=== PATIENT | male | born 1985 | race Hispanic/Latino ===

== ENCOUNTER 2018-07-21 12:02 | Emergency (ER) | payer SELFPAY ==
[2018-07-21] MEDS ORDERED: LEVALBUTEROL 1.25 MG/3 ML NEB ONE (12:50)
--- NOTE | 2018-07-21 14:47 | RAD REPORT ---
EXAM DESCRIPTION: RAD - Chest Pa And Lat (2 Views) - 07/21/2018 2:43 pm CLINICAL HISTORY: cough, fever Chest pain. COMPARISON: No comparisons FINDINGS: The lungs are clear. The heart is normal in size. No displaced fractures. IMPRESSION: No acute or concerning finding suspected.
--- NOTE | 2018-07-21 15:00 | ER ---
Nurse's Notes [facility] Name: Tyree Cantu Age: 32 yrs Sex: Male : 1985 Arrival Date: 07/21/2018 Time: 12:05 Bed 17 Private MD: None, None Diagnosis: Influenza due to other identified influenza virus Presentation: 07/21 12:08 Presenting complaint: Patient states: productive cough that began Thursday. Pt reports aa5 body aches and chills. Transition of care: patient was not received from another setting of care. Onset of symptoms was 2018. Risk Assessment: Do you want to hurt yourself or someone else? Patient reports no desire to harm self or others. Initial Sepsis Screen: Does the patient meet any 2 criteria? No. Patient's initial sepsis screen is negative. Does the patient have a suspected source of infection? No. Patient's initial sepsis screen is negative. Care prior to arrival: None. 12:08 Method Of Arrival: Ambulatory aa5 12:08 Acuity: MORENO 3 aa5 Triage Assessment: 12:33 General: Appears in no apparent distress. uncomfortable, Behavior is calm, cooperative, hj appropriate for age. Respiratory: Reports shortness of breath Onset: The symptoms/episode began/occurred yesterday, the patient has mild shortness of breath. Historical: - Allergies: 12:10 No Known Allergies; aa5 - Home Meds: 12:10 None [Active]; aa5 - PMHx: 12:10 None; aa5 - PSHx: 12:10 None; aa5 - Immunization history:: Flu vaccine is not up to date. - Social history:: Smoking status: Patient/guardian denies using tobacco. - Ebola Screening: : No symptoms or risks identified at this time. Screenin:33 Abuse screen: Denies threats or abuse. Denies injuries from another. Nutritional hj screening: No deficits noted. Tuberculosis screening: No symptoms or risk factors identified. Fall Risk None identified. Assessment: 12:33 Pain: Denies pain. Cardiovascular: Rhythm is. Respiratory: Airway is patent Respiratory hj effort is even, unlabored, Respiratory pattern is regular, symmetrical, Breath sounds are clear. Vital Signs: 12:10 BP 132 / 71; Pulse 94; Resp 18 S; Temp 97.5(TE); Pulse Ox 97% on R/A; Weight 158.76 kg aa5 (R); Height 5 ft. 5 in. (165.10 cm) (R); Pain 7/10; 12:10 Body Mass Index 58.24 (158.76 kg, 165.10 cm) aa5 ED Course: 12:05 Patient arrived in ED. mr 12:06 None, None is Private Physician. mr 12:09 Triage completed. aa5 12:09 Arm band placed on. aa5 12:11 Maxi Powell PA is PHCP. [facility] 12:11 Renny Jha MD is Attending Physician. [facility] 12:32 Shaun Perez, RN is Primary Nurse. hj 12:34 Patient has correct armband on for positive identification. Bed in low position. Call hj light in reach. Side rails up X 1. 14:41 Chest Pa And Lat (2 Views) XRAY In Process Unspecified. EDMS 15:09 No provider procedures requiring assistance completed. Patient did not have IV access hj during this emergency room visit. Administered Medications: 12:37 Drug: Xopenex (3) 1.25 mg Route: Inhalation; hj 15:08 Follow up: Response: No adverse reaction hj Outcome: 15:00 Discharge ordered by . [facility] 15:09 Discharged to home ambulatory. hj 15:09 Condition: stable 15:09 Discharge instructions given to patient, Instructed on discharge instructions, follow up and referral plans. medication usage, Demonstrated understanding of instructions, follow-up care, medications, Prescriptions given X 1. 15:10 Patient left the ED. Signatures: Dispatcher [employer] EDND Maxi Powell PA PA [facility] MikeRenetta mr KellyMinna RN RN aa5 Shaun Perez, RN RN hj
--- NOTE | 2018-07-21 15:01 | EDPHYS ---
Physician Documentation [facility] Name: Tyree Cantu Age: 32 yrs Sex: Male : 1985 Arrival Date: 07/21/2018 Time: 12:05 Bed 17 Private MD: None, None ED Physician Renny Jha HPI: 07/21 12:32 This 32 yrs old Male presents to ER via Ambulatory with complaints of Cough. jmm 12:32 The patient or guardian reports cough, with productive sputum. Onset: The [facility] symptoms/episode began/occurred gradually, 4 day(s) ago. Associated signs and symptoms: Pertinent positives: sore throat. This is a 32 year old male with ano chronic medical conditions that presents to the ED with complaints of productive cough and chills beginning this past Thursday. Denies chest pain, shortness of breath, vomiting, diarrhea. . Historical: - Allergies: 12:10 No Known Allergies; aa5 - Home Meds: 12:10 None [Active]; aa5 - PMHx: 12:10 None; aa5 - PSHx: 12:10 None; aa5 - Immunization history:: Flu vaccine is not up to date. - Social history:: Smoking status: Patient/guardian denies using tobacco. - Ebola Screening: : No symptoms or risks identified at this time. ROS: 12:32 Cardiovascular: Negative for chest pain, palpitations, and edema. jmm 12:32 Skin: Negative for injury, rash, and discoloration, Neuro: Negative for headache, weakness, numbness, tingling, and seizure. 12:32 Constitutional: Positive for body aches, chills. 12:32 Respiratory: Positive for cough. 12:32 Abdomen/GI: Positive for 12:32 Abdomen/GI: Negative for abdominal pain. 12:32 All other systems are negative. Exam: 12:32 Constitutional: This is a well developed, well nourished patient who is awake, alert, jmm and in no acute distress. Head/Face: atraumatic. Eyes: EOMI, no conjunctival erythema appreciated 12:32 Chest/axilla: Normal chest wall appearance and motion. Cardiovascular: Regular rate and rhythm. No edema appreciated Respiratory: Normal respirations, no respiratory distress appreciated Abdomen/GI: Non distended, soft 12:32 ENT: Posterior pharynx: erythema, that is mild. 12:32 Respiratory: the patient does not display signs of respiratory distress, Respirations: normal, Breath sounds: are clear throughout. 12:32 Back: ROM is normal. 12:32 Musculoskeletal/extremity: ROM: intact in all extremities. 12:32 Skin: Appearance: Color: normal in color. 12:32 Neuro: Orientation: is normal, Mentation: is normal, Memory: is normal, Gait: is steady. 12:32 Psych: Behavior/mood is pleasant, cooperative. Vital Signs: 12:10 BP 132 / 71; Pulse 94; Resp 18 S; Temp 97.5(TE); Pulse Ox 97% on R/A; Weight 158.76 kg aa5 (R); Height 5 ft. 5 in. (165.10 cm) (R); Pain 7/10; 12:10 Body Mass Index 58.24 (158.76 kg, 165.10 cm) aa5 MDM: 12:32 Patient medically screened. [facility] 14:58 Differential Diagnosis: Bronchitis Influenza Pharyngitis Viral Syndrome Pneumonia. Data [facility] reviewed: vital signs, nurses notes. Data interpreted: Pulse oximetry: on room air is 97 %. Interpretation: normal. Counseling: I had a detailed discussion with the patient and/or guardian regarding: the historical points, exam findings, and any diagnostic results supporting the discharge/admit diagnosis, lab results, radiology results, the need for outpatient follow up, to return to the emergency department if symptoms worsen or persist or if there are any questions or concerns that arise at home. ED course: Patient is alert and non toxic in appearance in the ED. patient given return precautions. patient understood and agrees with the plan of care. . 07/21 12:36 Order name: Influenza Screen (a \T\ B); Complete Time: 13:32 [facility] 07/21 12:36 Order name: Chest Pa And Lat (2 Views) XRAY; Complete Time: 14:55 [facility] Administered Medications: 12:37 Drug: Xopenex (3) 1.25 mg Route: Inhalation; 15:08 Follow up: Response: No adverse reaction Disposition: 16:39 Co-signature as Attending Physician, Renny Jha MD. rn Disposition: 07/21/18 15:00 Discharged to Home. Impression: Influenza due to other identified influenza virus. - Condition is Stable. - Discharge Instructions: Influenza, Adult. - Prescriptions for promethazine- DM - take 5 milliliter by ORAL route every 4-6 hours; 120 milliliter. - Medication Reconciliation Form, Thank You Letter, Antibiotic Education, Prescription Opioid Use, Work release form form. - Follow up: Private Physician; When: 1 - 2 days; Reason: Recheck today's complaints, Continuance of care, Re-evaluation by your physician. Signatures: Dispatcher [employer] EDMS Maxi Powell PA PA jmm Nieto, Roman, MD MD rn Calderon, Audri RN RN aa5 Shaun Perez RN RN hj Corrections: (The following items were deleted from the chart) 15:10 15:00 07/21/2018 15:00 Discharged to Home. Impression: Influenza due to other hj identified influenza virus. Condition is Stable. Forms are Medication Reconciliation Form, Thank You Letter, Antibiotic Education, Prescription Opioid Use. Follow up: Private Physician; When: 1 - 2 days; Reason: Recheck today's complaints, Continuance of care, Re-evaluation by your physician. isabel
== END 2018-07-21 15:10 | disposition home or self-care (01) ==
LOC: ER 12:02
DX: J10.1 Influenza due to other identified influenza virus with other respiratory manifestations (principal)
CPT/HCPCS: 71046; 87804; 99284